=== PATIENT | male | born 1955 | race Caucasian/White ===

== ENCOUNTER → 2019-10-19 11:44 | Outpatient (CLI) | payer MEDICARE ==
[~2019-10-19 11:44] MED LIST: LISINOPRIL10 MG PO
[2019-10-20 07:11] VITALS: BMI 29.3
== END | disposition home or self-care (01) ==
LOC: D.LABREF 11:44
PROVIDERS: ATTEND Internal Medicine Pulmonary Disease
DX: Z11.59 Encounter for screening for other viral diseases (principal)

== ENCOUNTER 2019-10-20 05:57 | Day surgery (SDC) | payer MEDICARE, OTHER ==
[~2019-10-20] VITALS: Ht 180.3 cm; Wt 95.3 kg
--- NOTE | ~2019-10-20 | OP ---
PATIENT NAME: GALI VIVAS MEDICAL RECORD: [id number] :51 LOCATION:D.OPS ADMISSION DATE: SURGEON: JAC TRIMBLE DPM DATE OF OPERATION: 10/20/2019 PREOPERATIVE DIAGNOSES: 1. Left posterior calcaneal spur. 2. Left Achilles tendon disruption. POSTOPERATIVE DIAGNOSES: 1. Left posterior calcaneal spur. 2. Left Achilles tendon disruption. PROCEDURES: 1. Left gastroc recession. 2. Left calcaneal spur removal. 3. Left Achilles tendon repair. ANESTHESIA: Preoperative popliteal block per the anesthesia department as well as intraoperative general anesthesia. HEMOSTASIS: Left thigh tourniquet at 350 mmHg. PREOPERATIVE DETAILS: The patient was brought to the hospital today due to significant pain and limitation due to the Achilles tendon disruption with posterior calcaneal spurring. It has been going on for many months and has gotten worse and could not be delayed. The patient was taken to the OR and following general induction placed on the operating table in a prone position. The left extremity was then prepped and draped in the usual aseptic technique followed by exsanguination and inflation of the tourniquet. PROCEDURE #1: Gastroc recession, left leg. A 15-blade was used to create a 4-cm linear incision over the posterior aspect of the gastroc aponeurosis. The incision was deepened down through subcutaneous tissue to the peritenon. Incision was made through the peritenon giving access to the aponeurosis. With the foot held in dorsiflexion, a deep cut was made through the aponeurosis allowing adequate ankle dorsiflexion. The peritenon was repaired with 4-0 Rapide and the skin was closed with skin ton. PROCEDURE #2: Left posterior calcaneal spur removal. A 15-blade was used to create a 5 cm linear incision over the posterior medial aspect of the left heel. The incision was deepened down through subcutaneous tissue. Dissection was carried down to the Achilles tendon peritenon incision was made and the soft tissues freed from the posterior aspect of the Achilles tendon. At this time, a 15-blade was used to free the Achilles tendon from its insertion. There was noted to be significant spurring from the posterior calcaneus with enlargement and disruption of the tendon. Once the tendon was reflected and the spur was visualized, a sagittal saw was used to resect the spur. The wound was flushed. Excellent contour was noted. PROCEDURE #3: Left Achilles tendon repair utilizing the SpeedBridge technique with 4 anchors in the calcaneus. Excellent repair was performed attaching the Achilles tendon to the posterior calcaneus. Once the repair was done, the patient's ankle was put through range of motion noting excellent rigid fixation. Wound was flushed. The peritenon was repaired with 2-0 Vicryl, the OPERATIVE REPORT [id number] GALI VIVAS CRYSTAL subcutaneous tissue with 4-0 Rapide and the skin was closed with 4-0 Rapide in a subcuticular technique followed by Dermabond. Adaptic, 4 x 4 and Conform were used to dress the wound followed by application of a modified Solis compression dressing. The tourniquet was deflated. POSTOPERATIVE DETAILS: The patient tolerated the procedure well and left the OR with vital signs stable and vascular status at preoperative levels. The patient was transported to recovery per anesthesia in stable condition. TRANSINT:[id number] Voice Confirmation ID: [id number] DOCUMENT ID: [id number] JAC TRIMBLE DPM CC: [id number] DICTATION DATE: 10/20/19 1038 FLIGHT OPERATIONS ENGINEER: 10/20/192209 [facility] 10/20/19 [facility] [address] [place] [address]
[2019-10-20 06:33] LABS: HEMOGLOBIN 15.7 g/dL (13.5-17.5); MCH 31.5 pg (26.0-34.0); MCHC 33.4 g/dL (31.0-37.0); MCV 94.4 fL (80.0-100.0); MEAN PLATELET VOLUME 9.7 fL (7.4-10.4); RBC 4.98 10x6/uL (4.20-6.10); RDW 13.8 % (11.5-14.5); WBC 5.2 10x3/uL (4.8-10.8)
[2019-10-20 07:11] VITALS: BP 158/96; Ht 180.3 cm; Wt 95.3 kg
== END 2019-10-20 12:22 | disposition home or self-care (01) ==
LOC: D.OPS 05:57 → D.PAN 08:30 → D.OPS 08:40 → D.PAN 08:40 → D.OPS 11:00
PROVIDERS: Anesthesiology; ATTEND Podiatrist
DX: M77.32 Calcaneal spur, left foot (principal); S86.012A Strain of left Achilles tendon, initial encounter; M76.62 Achilles tendinitis, left leg; M72.2 Plantar fascial fibromatosis; X58.XXXA Exposure to other specified factors, initial encounter